=== PATIENT | female | born 1985 | race American Indian/Alaskan Native ===

== ENCOUNTER 2017-03-04 22:38 | Outpatient (CLI) | payer MEDICAID ==
[2017-03-04 22:57] VITALS: BP 130/83
== END 2017-03-04 23:41 | disposition home or self-care (01) ==
LOC: TRG 22:38
PROVIDERS: ATTEND Obstetrics & Gynecology
DX: Z34.93 Encounter for supervision of normal pregnancy, unspecified, third trimester (principal); Z3A.38 38 weeks gestation of pregnancy
CPT/HCPCS: 59025

== ENCOUNTER 2017-03-15 04:29 | Inpatient (IN) | payer MEDICAID ==
[2017-03-15] MEDS ORDERED: ePHEDrine SULFATE IV PRN ×2 (07:06→08:25)
[2017-03-15] MEDS ORDERED: MINERAL OIL PO PRN (07:06)
[2017-03-15] MEDS ORDERED: BRETHINE SUB-Q PRN (07:06)
[2017-03-15] MEDS ORDERED: XYLOCAINE 2% INFILTRATI ONE (07:06)
[2017-03-15] MEDS ORDERED: BRETHINE IVP PRN (07:06)
[2017-03-15] MEDS ORDERED: SUBLIMAZE IV PRN (07:06)
[2017-03-15 07:55] LABS: Basophils % (Auto) 0.2 % (0.0-1.8); Eosinophils % (Auto) 0.1 % (0.0-4.3); Hematocrit 32.5 % (30.3-42.9); Hemoglobin 10.8 gm/dl (10.1-14.3); Lymphocytes # (Auto) 1.6 K/mm3 (1.2-5.4); Lymphocytes % (Auto) 14.5 % (13.4-35.0); Mean Corpuscular HGB Conc 33 % (30-34); Mean Corpuscular Hemoglobin 27 pg (28-32); Mean Corpuscular Volume 82 fl (79-97); Monocytes % (Auto) 9.7 % (0.0-7.3); Platelet Count 258 K/mm3 (140-440); Red Blood Count 3.97 M/mm3 (3.65-5.03); Red Cell Distribution Width 18.4 % (13.2-15.2)
[2017-03-15] MEDS ORDERED: PITOCin/NS 20 UNIT/1000ML DRIP 20 UNITS/1,000 ML BAG IV SCH (08:00)
[2017-03-15] MEDS ORDERED: LACTATED RINGERS 1,000 ML IV SCH ×2 (08:00)
--- NOTE | 2017-03-15 08:13 | History and Physical Report ---
History of Present Illness Date of examination: 03/15/17 Date of admission: 03/15/17 07:00 Chief complaint: contractions History of present illness: 31 y/o now 39.5 weeks presents in active labor. GBS Neg. care at [facility] since 17.3 weeks. 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 Past History Past Medical History: other (Hemoglobin C trait) Past Surgical History: other (Hernia repair age 12) REHAB NURSING TECH History: herpes, trichomonas Family/Genetic History: other (TB, Hep B, asthma) Social history: no significant social history - Obstetrical History Expected Date of Delivery: 03/17/17 Actual Gestation: 39 Week(s) 5 Day(s) : 5 Para: 1 Hx # Term Pregnancies: 1 Spontaneous Abortions: 2 Induced : 1 Number of Living Children: 1 Medications and Allergies Allergies Allergy/AdvReac Type Severity Reaction Status Date / Time No Known Allergies Allergy Verified 02/17/14 10:52 Home Medications Medication Instructions Recorded Confirmed Last Taken Type No Known Home Medications [No 03/15/17 03/15/17 Unknown History Reported Home Medications] Active Meds: Active Medications Ephedrine Sulfate (Ephedrine Sulfate) 10 mg IV Q2M PRN PRN Reason: Hypotension Fentanyl (Sublimaze) 100 mcg IV Q2H PRN PRN Reason: Labor Pain Last Admin: 03/15/17 07:21 Dose: 100 mcg Lactated Ringer's (Lactated Ringers) 1,000 mls @ 125 mls/hr IV DIRECT KRIS Last Admin: 03/15/17 07:21 Dose: 125 mls/hr Lactated Ringer's (Lactated Ringers) 1,000 mls @ 125 mls/hr IV DIRECT KRIS Oxytocin/Sodium Chloride (Pitocin/Ns 20 Unit/1000ml Drip) 20 units in 1,000 mls @ 125 mls/hr IV DIRECT KRSI Mineral Oil (Mineral Oil) 30 ml PO QHS PRN PRN Reason: Constipation Terbutaline Sulfate (Brethine) 0.25 mg SUB-Q ONCE PRN PRN Reason: Hyperstimulation/Hypertonicity Terbutaline Sulfate (Brethine) 0.25 mg IVP ONCE PRN PRN Reason: Hyperstimulation/Hypertonicity Review of Systems All systems: negative - Vital Signs Vital signs: Vital Signs Temp Pulse Resp BP 98.2 F 126 H 20 127/74 03/15/17 04:43 03/15/17 04:43 03/15/17 04:43 03/15/17 04:43 Temp Pulse Resp BP Pulse Ox 98.1 F 128 H 16 128/74 98 03/15/17 07:46 03/15/17 08:08 03/15/17 07:46 03/15/17 08:08 03/15/17 08:08 - Physical Exam Breasts: Positive: deferred Cardiovascular: Regular rate Lungs: Positive: Clear to auscultation Abdomen: Positive: soft Genitourinary (Female): Positive: normal external genitalia Vulva: both: normal Vagina: Positive: normal moisture Uterus: Positive: enlarged Adnexa: both: normal Anus/Rectum: Positive: normal perianal skin Extremities: Positive: normal Deep Tendon Reflex Grade: Normal +2 - Obstetrical FHR: category 1 Cervical Dilatation: 8 Cervical Effacement Percentage: 80 station: -1 Uterine Contraction Pattern: Regular Uterine Contraction Intensity: Mild Results Result Diagrams: 03/15/17 07:20 Abnormal lab results 03/15/17 Range/Units 07:20 MCH 27 L (28-32) pg RDW 18.4 H (13.2-15.2) % [place] % (Auto) 9.7 H (0.0-7.3) % [place] # 1.0 H (0.0-0.8) K/mm3 Seg Neutrophils % 75.5 H (40.0-70.0) % Seg Neutrophils # 8.1 H (1.8-7.7) K/mm3 All other labs normal. Assessment and Plan O: Arom with Meconium A: Active labor P: Expect
[2017-03-15] MEDS ORDERED: fentaNYL-BUPIV 2 MCG/ML-0.125% 200 MCG/100 ML BAG EPIDURAL ONE (08:17)
[2017-03-15] MEDS ORDERED: NARCAN 2 MG/2 ML IV PRN (08:25)
--- NOTE | 2017-03-15 08:25 | Anesthesia Consultation ---
Anesthesia Consult and Med Hx Date of service: 03/15/17 - Airway Anesthetic Teeth Evaluation: Good ROM Head & Neck: Adequate Mental/Hyoid Distance: Adequate Mallampati Class: Class II Intubation Access Assessment: Probably Good - Pulmonary Exam CTA: Yes - Cardiac Exam Cardiac Exam: RRR - Pre-Operative Health Status ASA Pre-Surgery Classification: ASA2 Proposed Anesthetic Plan: Epidural - Pulmonary Hx Asthma: No COPD: No Hx Pneumonia: No - Cardiovascular System Hx Hypertension: No - Central Nervous System Hx Seizures: No Hx Psychiatric Problems: Yes (anxiety) - Endocrine Hx Renal Disease: No Hx End Stage Renal Disease: No Hx Liver Disease: No Hx Hypothyroidism: No Hx Hyperthyroidism: No - Hematic Hx Anemia: Yes Hx 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
[2017-03-15] MEDS ORDERED: fentaNYL-BUPIV 2 MCG/ML-0.125% 200 MCG/100 ML BAG EPIDURAL SCH (09:00)
[2017-03-15] MEDS ORDERED: DULCOLAX PR PRN (09:30)
[2017-03-15] MEDS ORDERED: LANSINOH TP PRN (09:30)
[2017-03-15] MEDS ORDERED: TUCKS PAD TP PRN (09:30)
[2017-03-15] MEDS ORDERED: BENADRYL PO PRN (09:30)
[2017-03-15] MEDS ORDERED: TYLENOL PO PRN (09:30)
--- NOTE | 2017-03-15 09:38 | Procedure Note ---
OB Delivery Note - Delivery Date of Delivery: 03/15/17 Surgeon: FRANCES JAY Estimated blood loss: 200cc - Vaginal Delivery presentation: vertex Delivery position: OA Intrapartum events: meconium Delivery induction: none Delivery augmentation: rupture of membranes Delivery monitor: external FHT, external uterine Route of delivery: Delivery placenta: spontaneous Delivery cord: 3 umbilical vessels Episiotomy: none Delivery laceration: none Anesthesia: epidural Delivery comments: of a viable male 6#6oz at 0909 on 03/15/2017 over intact perinuem. Cord clamped and cut and baby passed to NICU nurse due to Meconium. Apgars 7/9. Placenta delivered S3VCI. Membranes trailing and removed manually. FF @U-2, lochia small. Mother and baby doing well. - A at 1 minute: 8 at 5 minutes: 9 Infant Gender: Male (6# 6oz)
[2017-03-15] MEDS ORDERED: SODIUM CHLORIDE FLUSH SYRINGE 10 ML IV NR (10:00)
[2017-03-15] MEDS: MOTRIN PO SCH (17:19)
[2017-03-15] MEDS: NORCO 5/325 PO PRN (19:51)
[2017-03-15 20:26] LABS: Hematocrit 26.5 % (30.3-42.9)
[2017-03-16] MEDS: MOTRIN PO SCH ×5 (00:07→23:31)
[2017-03-16] MEDS: NORCO 5/325 PO PRN ×4 (04:03→23:31)
--- NOTE | 2017-03-16 09:36 | Progress Note ---
Assessment and Plan A: PPD #1, Stable P: Continue routine care. Plan discharge for tomorrow. Subjective - Subjective Date of service: 03/16/17 Principal diagnosis: PPD #1 Patient reports: appetite normal, voiding normally, pain well controlled, ambulating normally [place]: doing well Objective - Vital Signs Latest vital signs: Vital Signs Temp Pulse Resp BP BP 03/16/17 05:03 18 03/16/17 04:03 18 03/16/17 04:00 18 03/16/17 01:07 18 03/16/17 00:07 18 03/16/17 00:00 98.7 F 99 H 20 120/72 03/15/17 20:51 18 03/15/17 19:51 18 03/15/17 17:40 98.6 F 90 18 128/79 03/15/17 09:47 111 H 119/73 Intake and Output 03/15/17 03/16/17 03/16/17 23:59 07:59 15:59 Intake Total 600 120 Balance 600 120 Intake: Oral 600 Intake, Free Water 120 Other: Total, Intake Amount 240 # Voids Void 1 1 - Exam Breasts: Present: deferred Cardiovascular: Present: Regular rate Lungs: Present: Clear to auscultation Abdomen: Present: normal appearance, soft Vulva: both: normal Uterus: Present: normal, firm, fundal height below umbilicus Extremities: Present: normal Deep Tendon Reflex Grade: Normal +2 - Labs Labs: Abnormal lab results 03/15/17 Range/Units 20:20 Hgb 9.0 L (10.1-14.3) gm/dl Hct 26.5 L D (30.3-42.9) %
[2017-03-17] MEDS: NORCO 5/325 PO PRN ×3 (05:26→20:02)
[2017-03-17] MEDS: MOTRIN PO SCH ×3 (05:26→20:02)
--- NOTE | 2017-03-17 08:48 | Progress Note ---
Assessment and Plan - Patient Problems (1) (normal spontaneous vaginal delivery) Onset Date: 03/17/17 Current Visit: Yes Status: Resolved Plan to address problem: A: S/P - PPD #2 Doing well Asymptomatic anemia - stable P: May go home today (2) Acute blood loss anemia Onset Date: 03/17/17 Current Visit: Yes Status: Resolved Subjective - Subjective Date of service: 03/17/17 Principal diagnosis: PPD #2 Interval history: Pt feeling well, complaints of abdominal cramping. Bleeding improved. Patient reports: appetite normal, voiding normally, pain well controlled, ambulating normally : doing well, nursing well Objective - Vital Signs Latest vital signs: Vital Signs Temp Pulse Resp BP BP Pulse Ox 03/17/17 00:41 97.6 F 106 H 20 118/75 100 03/16/17 18:32 20 03/16/17 18:30 20 03/16/17 16:00 98.1 F 102 H 16 126/88 98 03/16/17 12:00 98.2 F 100 H 16 120/70 97 03/16/17 11:45 20 Intake and Output 03/16/17 03/17/17 03/17/17 22:59 06:59 14:59 Intake Total 240 240 Balance 240 240 Intake: Oral 240 Intake, Free Water 240 Other: Total, Intake Amount 240 # Voids Void 1 1 Last Vital Signs Temp 98.1 F 03/17/17 07:43 Pulse 89 03/17/17 07:43 Resp 20 03/17/17 07:43 BP 105/64 03/17/17 07:43 Pulse Ox 98 03/17/17 07:43 - Exam Breasts: Present: deferred Cardiovascular: Present: Regular rate Lungs: Present: Clear to auscultation Abdomen: Present: normal appearance, soft Uterus: Present: normal, firm, fundal height below umbilicus Extremities: Present: normal - Labs Labs: Laboratory Tests 03/15/17 03/15/17 03/15/17 07:20 07:20 07:20 WBC 10.8 RBC 3.97 Hgb 10.8 Hct 32.5 MCV 82 MCH 27 L MCHC 33 RDW 18.4 H Plt Count 258 Lymph % (Auto) 14.5 [place] % (Auto) 9.7 H Eos % (Auto) 0.1 Baso % (Auto) 0.2 Lymph # 1.6 [place] # 1.0 H Eos # 0.0 Baso # 0.0 Seg Neutrophils % 75.5 H Seg Neutrophils # 8.1 H RPR Nonreactive Blood Type O POSITIVE Antibody Screen Negative 03/15/17 20:20 WBC RBC Hgb 9.0 L Hct 26.5 L D MCV MCH MCHC RDW Plt Count Lymph % (Auto) [place] % (Auto) Eos % (Auto) Baso % (Auto) Lymph # [place] # Eos # Baso # Seg Neutrophils % Seg Neutrophils # RPR Blood Type Antibody Screen
--- NOTE | 2017-03-17 09:05 | Discharge Summary ---
Providers - Providers Date of Admission: 03/15/17 07:00 Date of discharge: 03/17/17 Attending physician: LIZ RANDHAWA MD Primary care physician: LIZ RANDHAWA MD Hospitalization Reason for admission: active labor, IUP at term Delivery: Episiotomy: none Laceration: none Other procedures: none complications: none Discharge diagnosis: IUP at term delivered [place] baby: male Hospital course: Unremarkable. Condition at discharge: Good Disposition: MA-01 TO HOME OR SELFCARE - Discharge Diagnoses (1) (normal spontaneous vaginal delivery) Status: Resolved (2) Acute blood loss anemia Status: Resolved Plan - Discharge Medications Prescriptions: Ferrous Sulfate [Feosol 325 MG tab] 325 mg PO BID #60 tablet HYDROcodone/APAP 5-325 [[place] 5-325 mg TAB] 1 each PO Q6H PRN #20 tablet PRN Reason: Pain, Moderate (4-6) Ibuprofen [Motrin 600 MG tab] 600 mg PO Q6H #30 tablet Vit Calc,Iron,Folic [ Vitamins] 1 each PO DAILY #30 tablet - Provider Discharge Summary Activity: routine, no sex for 6 weeks, no heavy lifting 4 weeks, no strenuous exercise Diet: routine Instructions: routine Additional instructions: [] Smoking cessation referral if applicable(refer to patient education folder for contact #) [] Refer to [facility] Booklet Call your doctor immediately for: * Fever > 100.5 * Heavy vaginal bleeding ( >1 pad per hour) * Severe persistent headache * Shortness of breath * Reddened, hot, painful area to leg or breast * Drainage or odor from incision. * Keep incision clean and dry at all times and follow doctor's instructions regarding bathing/showering - Follow up plan Follow up: LIZ RANDHAWA MD [Primary Care Provider] - 6 Weeks
[2017-03-17 17:33] VITALS: BP 128/87
== END 2017-03-17 23:10 | disposition home or self-care (01) | DRG 774 ==
LOC: TRG 04:29 → LD 07:00 → OB 10:29
PROVIDERS: ADMIT Obstetrics & Gynecology; ATTEND Obstetrics & Gynecology
PROC: 10E0XZZ Delivery of Products of Conception, External Approach (ICD-10-PCS; principal; 2017-03-15)
PROC: 10907ZC Drainage of Amniotic Fluid, Therapeutic from Products of Conception, Via Natural or Artificial Opening (ICD-10-PCS; 2017-03-15)
PROC: 3E0R3BZ Introduction of Anesthetic Agent into Spinal Canal, Percutaneous Approach (ICD-10-PCS; 2017-03-15)
PROC: 00HU33Z Insertion of Infusion Device into Spinal Canal, Percutaneous Approach (ICD-10-PCS; 2017-03-15)
DX: O77.0 Labor and delivery complicated by meconium in amniotic fluid (principal); O98.32 Other infections with a predominantly sexual mode of transmission complicating childbirth; Z3A.39 39 weeks gestation of pregnancy; Z37.0 Single live birth; D62 Acute posthemorrhagic anemia; O99.03 Anemia complicating the puerperium; O99.344 Other mental disorders complicating childbirth; F41.9 Anxiety disorder, unspecified; A60.00 Herpesviral infection of urogenital system, unspecified
CPT/HCPCS: 36415; 85014; 85018; 85025; 86592; 86850; 86900; 86901; 99211; G0463; J2590; J3010; J7120

== ENCOUNTER 2018-09-04 14:38 | Emergency (ER) | payer MEDICAID ==
--- NOTE | 2018-09-04 15:03 | Emergency Department Report ---
Blank Doc - Documentation Documentation: Patient reports lower abdominal pain started 2 to 3 week ago getting worst. No fever, chills, diarrhea. reports vaginal discharge and spotting. LMP 03/2018. [facility]. This was 11 days ago and she called today for results and was told results not back and was told by nurse to come to ED. No vaginal exam at [facility],
[2018-09-04 15:27] LABS: Bilirubin,Urine NEG (Negative); Blood,Urine NEG (Negative); Color,Urine Yellow (Yellow); Mucus,Urine FEW /HPF; Protein,Urine <15 mg/dL mg/dL (Negative); Urobilinogen,Urine < 2.0 mg/dL (<2.0)
[2018-09-04 15:28] LABS: HCG Qualitative,Urine Positive (Negative)
[2018-09-04 16:05] LABS: Hematocrit 29.4 % (30.3-42.9); Hemoglobin 9.9 gm/dl (10.1-14.3); Mean Corpuscular HGB Conc 34 % (30-34); Mean Corpuscular Volume 77 fl (79-97); Platelet Count 265 K/mm3 (140-440); Red Blood Count 3.81 M/mm3 (3.65-5.03); Red Cell Distribution Width 18.2 % (13.2-15.2)
[2018-09-04 16:26] LABS: BUN/Creatinine Ratio 12; Blood Urea Nitrogen 6 mg/dL (7-17); Calcium 9.4 mg/dL (8.4-10.2); Hemolysis Index 2
--- NOTE | 2018-09-04 17:17 | Emergency Department Report ---
HPI - General Chief Complaint: Abdominal Pain Time Seen by Provider: 09/04/18 14:57 - HPI HPI: Patient is a 33-year-old female comes to the ER complaining of lower abdominal pain bilateral for several days. She denies nausea vomiting or diarrhea. She does report vaginal discharge but is not concerned for STI. She has one male sexual partner. 3 para 2 abortions 1. Her last menstrual cycle for 06/10/2018. She saw her [facility] last week who did not tell her she was per the patient. She states that she had a STD workup. She called them today and the results are not back to the center to the ER. 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 HEMOGLOBIN C TRAIT - Surgical History Past Surgical History?: Yes Additional Surgical History: hernia repair at age 12 - Social History Smoking Status: Never Smoker Substance Use Type: None - Medications Home Medications: Home Medications Medication Instructions Recorded Confirmed Last Taken Type Vit-Fe Fumar-FA [ 1 tab PO QDAY #30 tablet 09/04/18 Unknown Rx Vitamin] ED Review of Systems ROS: Stated complaint: LOW ABDOMINAL PAIN Other details as noted in HPI Comment: All other systems reviewed and negative Genitourinary: discharge. denies: urgency, dysuria, frequency, hematuria Physical Exam - Physical Exam Vital Signs: Vital Signs 09/04/18 14:48 Temperature 98.1 F Pulse Rate 95 H Respiratory 16 Rate Blood Pressure 115/80 O2 Sat by Pulse 100 Oximetry Physical Exam: WDWN patient in NAD VS per RN flow sheet Alert and oriented to person, place and time. S1-S2. No S3 or S4. No systolic or diastolic murmur. No JVD. No pitting angel ma. Lungs clear to auscultation bilaterally anteriorly and posteriorly. Abdomen soft nontender bowel sounds X4 abd soft non tender no cva tenderness Moves all extremities well. Mood and affect appropriate. ED Course Vital Signs 09/04/18 14:48 Temperature 98.1 F Pulse Rate 95 H Respiratory 16 Rate Blood Pressure 115/80 O2 Sat by Pulse 100 Oximetry ED Medical Decision Making - Lab Data Result diagrams: 09/04/18 15:49 09/04/18 15:49 - Radiology Data Radiology results: report reviewed, image reviewed - Medical Decision Making Labs 09/04/18 09/04/18 09/04/18 15:05 15:49 15:49 WBC 5.3 RBC 3.81 Hgb 9.9 L Hct 29.4 L MCV 77 L MCH 26 L MCHC 34 RDW 18.2 H Plt Count 265 Sodium 136 L Potassium 3.8 Chloride 101.2 Carbon Dioxide 22 Anion Gap 17 BUN 6 L Creatinine 0.5 L Estimated GFR > 60 BUN/Creatinine Ratio 12 Glucose 74 Calcium 9.4 HCG, Quant Urine Color Yellow Urine Turbidity Clear Urine pH 5.0 Ur Specific [place] 1.027 Urine Protein <15 mg/dl Urine Glucose (UA) Neg Urine Ketones Neg Urine Blood Neg Urine Nitrite Neg Urine Bilirubin Neg Urine Urobilinogen < 2.0 Ur Leukocyte Esterase Tr Urine WBC (Auto) 9.0 H Urine RBC (Auto) 3.0 U Epithel Cells (Auto) 5.0 Urine Mucus Few Urine HCG, Qual Positive A Blood Type Ord Rhogam Gestat Weeks 09/04/18 09/04/18 15:49 15:49 WBC RBC Hgb Hct MCV MCH MCHC RDW Plt Count Sodium Potassium Chloride Carbon Dioxide Anion Gap BUN Creatinine Estimated GFR BUN/Creatinine Ratio Glucose Calcium HCG, Quant [id number] H Urine Color Urine Turbidity Urine pH Ur Specific [place] Urine Protein Urine Glucose (UA) Urine Ketones Urine Blood Urine Nitrite Urine Bilirubin Urine Urobilinogen Ur Leukocyte Esterase Urine WBC (Auto) Urine RBC (Auto) U Epithel Cells (Auto) Urine Mucus Urine HCG, Qual Blood Type O POSITIVE Ord Rhogam Gestat Weeks Rh pos Vital Signs 09/04/18 14:48 Temperature 98.1 F Pulse Rate 95 H Respiratory 16 Rate Blood Pressure 115/80 O2 Sat by Pulse 100 Oximetry PREG POS no vaginal bleeding! RH POS labs noted HCG [id number] [id number] and tr leuk in urine urine culture sent given 1 GM rocephin IM for UTI call her if cultures is greater than 10K colony count pt denies dysuria or frequency she is not concerned for STI Further, she had a full work up last week by her obgyn at [facility]- she will call them back in the AM for the results of her tests. ULTRASOUND pending Plan provided US shows no ectopic pt to dc home to follow up [facility] in the AM for her lab results and to schedule her visit and follow up hcg on Friday AM. - Differential Diagnosis RO PREG/ RO ECTOPIC/ RO UTI Critical care attestation.: If time is entered above; I have spent that time in minutes in the direct care of this critically ill patient, excluding procedure time. ED Disposition Clinical Impression: , Chronic anemia, UTI (urinary tract infection) Disposition: DC TO HOME OR SELFCARE Is pt being admited?: No Does the pt Need Aspirin: No Condition: Stable Instructions: (ED) Additional Instructions: DIET TOLERATED FOLLOW UP OBGYN IN AM FOR CARE AND TO GET YOUR HCG RECHECKED ON FRIDAY AM (TODAYS VALUE [id number]) BLOOD TYPE RH POS ACTIVITY TOLERATED TYLENOL FOR PAIN OR FEVER RETURN TO THE ER FOR WORSENING SYMPTOMS NOT RELIEVED BY YOUR MEDICATIONS. SAFE SEX AVOID ALCOHOL, DRUGS, MARIJUANA AND TOBACCO DAILY MULTI VITAMIN Prescriptions: Vit-Fe Fumar-FA [ Vitamin] 1 tab PO QDAY #30 tablet Referrals: BATSHEVA SAMANIEGO MD [Staff Physician] - 3-5 Days Time of Disposition: 17:48
[2018-09-04] MEDS ORDERED: ROCEPHIN IM ONE (18:52)
[2018-09-04] MEDS ORDERED: XYLOCAINE 1% MPF 5 mL INFILTRATI ONE (18:52)
--- NOTE | 2018-09-04 19:39 | Ultrasound Report ---
Transabdominal and transvaginal OB pelvic ultrasound INDICATION / CLINICAL INFORMATION: ABD PAIN. COMPARISON: None available. FINDINGS: Transabdominal: There is an intrauterine gestational sac with a pole. The estimated gestational age is 7 weeks 1 day by crown-rump length. The heart rate is 144 bpm. A yolk sac is present. I see no evidence of implantation hemorrhage. The ovaries are suboptimally imaged. Transvaginal: There is an intrauterine gestational sac. The estimated gestational age is 7 weeks 5 da ys by crown-rump length. The heart rate is 145 bpm. There is a minimal area of implantation hem orrhage anteriorly. The right ovary measures 2.8 x 1.5 x 1.4 cm and the left ovary 2.6 x 2.5 x 2.0 cm . There is a 1.5 cm corpus luteal cyst in the left ovary. There is normal blood flow to both ovaries on Doppler exam. No free fluid is seen. IMPRESSION: 1. Single viable 7 week 5 day intrauterine with a minimal area of implantation hemorrhage 2. Small corpus luteal cyst in the left ovary. Signer Name: Jitendra Pretty MD Signed: 09/04/2018 7:35 PM Workstation Name: [id number]
[2018-09-04 20:24] VITALS: BP 114/81
== END 2018-09-04 20:24 | disposition home or self-care (01) ==
LOC: ED 14:38
DX: O23.41 Unspecified infection of urinary tract in pregnancy, first trimester (principal); O99.011 Anemia complicating pregnancy, first trimester; D63.8 Anemia in other chronic diseases classified elsewhere; Z98.890 Other specified postprocedural states; Z3A.01 Less than 8 weeks gestation of pregnancy
CPT/HCPCS: 36415; 76801; 76817; 80048; 81001; 81025; 84702; 85027; 86900; 86901; 87086; 96372; 99284; J0696

== ENCOUNTER 2018-12-03 18:44 | Emergency (ER) | payer MEDICAID ==
[2018-12-03 18:55] VITALS: BP 119/76
--- NOTE | 2018-12-03 19:01 | Event Note ---
ED Screening Note ED Screening Note: This initial assessment/diagnostic orders/clinical plan/treatment(s) is/are subject to change based on patients health status, clinical progression and re- assessment by fellow clinical providers in the ED. Further treatment and workup at subsequent clinical providers discretion. Patient/guardian urged not to elope from the ED as their condition may be serious if not clinically assessed and managed. Initial orders include: 33 yo BF states that she is pain due to her hemorrhoids. She is also 5 months . She further states that her pain is worse with movement and makes defecating painful in addition to constipation she is experiencing.
[2018-12-03] MEDS ORDERED: LIDOCAINE 2% JELLY 30 ML TP ONE (20:21)
[2018-12-03] MEDS ORDERED: ACETAMINOPHEN 500 MG TAB PO ONE (20:21)
--- NOTE | 2018-12-03 21:48 | Emergency Department Report ---
ED General Adult HPI - General Chief complaint: Medical Clearance Stated complaint: 21WKS HEMORRHOIDS Source: patient Mode of arrival: Ambulatory Limitations: No Limitations - History of Present Illness Initial comments: Patient is a A0 33-year-old -[place] female who is approximately 21 weeks gestation and who presents to the ED with complaint of acute onset persistent rectal pain with external hemorrhoids for the last 1 week. Patient also complains of intermittent constipation for the last 1 week but has been taking stool softeners which has since helped. Patient denies fever, chills, nausea, vomiting, abdominal pain, dizziness, dysuria, urinary frequency and urgency or vaginal discharge and vaginal bleeding. MD Complaint: Rectal pain; hemorrhoids pain -: Sudden, week(s) (1) Radiation: non-radiation Severity scale (0 -10): 8 Quality: burning, aching, sharp Consistency: constant Improves with: none Worsens with: none Associated Symptoms: denies other symptoms. denies: confusion, chest pain, diaphoresis, fever/chills, headaches, malaise, nausea/vomiting, seizure Treatments Prior to Arrival: none - Related Data Previous Rx's Medication Instructions Recorded Last Taken Type Vit-Fe Fumar-FA [ 1 tab PO QDAY #30 tablet 09/04/18 Unknown Rx Vitamin] Dibucaine [Hemorrhoidal-Analgesic] 28 gm TP Q6H PRN #28 oint...g. 12/03/18 Unknown Rx Docusate Sodium [Colace] 100 mg PO BID PRN #60 capsule 12/03/18 Unknown Rx Hydrocortisone [Anusol-Hc 2.5% TOP 30 gm RC Q8H PRN #30 cream..g. 12/03/18 Unknown Rx CREAM] Allergies Allergy/AdvReac Type Severity Reaction Status Date / Time No Known Allergies Allergy Verified 12/03/18 18:53 ED Review of Systems ROS: Stated complaint: 21WKS HEMORRHOIDS Other details as noted in HPI Constitutional: denies: chills, fever Eyes: denies: eye pain, eye discharge, vision change ENT: denies: ear pain, throat pain Respiratory: denies: cough, shortness of breath, wheezing Cardiovascular: denies: chest pain, palpitations Endocrine: no symptoms reported Gastrointestinal: constipation, other (rectal pain due toe xternal hemorrhoids). denies: abdominal pain, nausea, vomiting, diarrhea Genitourinary: denies: urgency, dysuria, discharge Musculoskeletal: denies: back pain, joint swelling, arthralgia Skin: denies: rash, lesions Neurological: denies: headache, weakness, paresthesias Psychiatric: denies: anxiety, depression Hematological/Lymphatic: denies: easy bleeding, easy bruising ED Past Medical Hx - Past Medical History Previous Medical History?: Yes Hx Hypertension: No Hx CVA: No Hx Congestive Heart Failure: No Hx Diabetes: No Hx Deep Vein Thrombosis: No Hx Pulmonary Embolism: No Hx GERD: No Hx Liver Disease: No Hx Renal Disease: No 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 HEMOGLOBIN C TRAIT - Surgical History Additional Surgical History: hernia repair at age 12 - Social History Smoking Status: Never Smoker - Medications Home Medications: Home Medications Medication Instructions Recorded Confirmed Last Taken Type Vit-Fe Fumar-FA [ 1 tab PO QDAY #30 tablet 09/04/18 Unknown Rx Vitamin] Dibucaine [Hemorrhoidal-Analgesic] 28 gm TP Q6H PRN #28 oint...g. 12/03/18 Unknown Rx Docusate Sodium [Colace] 100 mg PO BID PRN #60 capsule 12/03/18 Unknown Rx Hydrocortisone [Anusol-Hc 2.5% TOP 30 gm RC Q8H PRN #30 cream..g. 12/03/18 Unknown Rx CREAM] ED Physical Exam - General Limitations: No Limitations General appearance: alert, in no apparent distress - Head Head exam: Present: atraumatic, normocephalic, normal inspection - Eye Eye exam: Present: normal appearance, PERRL, EOMI Pupils: Present: normal accommodation - ENT ENT exam: Present: normal exam, normal orophraynx, mucous membranes moist, TM's normal bilaterally, normal external ear exam - Neck Neck exam: Present: normal inspection, full ROM - Respiratory Respiratory exam: Present: normal lung sounds bilaterally. Absent: respiratory distress, wheezes, rhonchi, chest wall tenderness, decreased breath sounds, prolonged expiratory - Cardiovascular Cardiovascular Exam: Present: regular rate, normal rhythm. Absent: systolic murmur, diastolic murmur, rubs, gallop - GI/Abdominal GI/Abdominal exam: Present: soft, normal bowel sounds. 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 Absent: rash ED Course Vital Signs 12/03/18 18:53 Pulse Rate 104 H Respiratory 20 Rate Blood Pressure 119/76 [Right] O2 Sat by Pulse 99 Oximetry - Reevaluation(s) Reevaluation #1: 12/03/18 21:52 This is a 33-year-old female who is approximately 21 weeks gestation and who presented to the ED with painful external hemorrhoids for over 1 week. In the ED, patient is alert and oriented 3 and is not in distress. Physical exam shows external tender non-thrombosed hemorrhoids. Patient was treated in the ED with lidocaine 2% topical gel and discharged home on multiple pain medications including dibucaine and Anusol. Patient was advised to follow-up with [facility] physician in 5-7 days for reevaluation or return to the ED immediately if symptoms get worse. ED Medical Decision Making - Medical Decision Making This is a 33-year-old female who is approximately 21 weeks gestation and who presented to the ED with painful external hemorrhoids for over 1 week. In the ED, patient is alert and oriented 3 and is not in distress. Physical exam shows external tender non-thrombosed hemorrhoids. Patient was treated in the ED with lidocaine 2% topical gel and discharged home on multiple pain medications including dibucaine and Anusol. Patient was advised to follow-up with [facility] physician in 5-7 days for reevaluation or return to the ED immediately if sympt oms get worse. - Differential Diagnosis External hemorrhoids; Rectal pain; anal fissures; anal tears Critical care attestation.: If time is entered above; I have spent that time in minutes in the direct care of this critically ill patient, excluding procedure time. ED Disposition Clinical Impression: External hemorrhoids, Rectal or anal pain Constipation Qualifiers: Constipation type: unspecified constipation type Qualified Code(s): K59.00 - Constipation, unspecified Disposition: TO HOME OR SELFCARE Is pt being admited?: No Does the pt Need Aspirin: No Condition: Stable Instructions: Hemorrhoids (ED) Additional Instructions: Apply the ointment in the affected area 3-4 times a day as needed. Take medications for pain, mainly Tylenol, drink plenty of fluids and follow-up with your primary care physician or [facility] physician in 7-10 days for reevaluation. Return to the ED immediately if symptoms get worse. Prescriptions: Hydrocortisone [Anusol-Hc 2.5% TOP CREAM] 30 gm RC Q8H PRN #30 cream..g. PRN Reason: Pain , Severe (7-10) Docusate Sodium [Colace] 100 mg PO BID PRN #60 capsule PRN Reason: Constipation Dibucaine [Hemorrhoidal-Analgesic] 28 gm TP Q6H PRN #28 oint...g. PRN Reason: Pain , Severe (7-10) Referrals: PRIMARY CARE,MD [Primary Care Provider] - 3-5 Days Forms: Work/School Release Form(ED) Time of Disposition: 21:45 Print Language: FRENCH
== END 2018-12-03 22:02 | disposition home or self-care (01) ==
LOC: ED 18:44
DX: O26.892 Other specified pregnancy related conditions, second trimester (principal); K64.4 Residual hemorrhoidal skin tags; K59.00 Constipation, unspecified; Z79.899 Other long term (current) drug therapy; Z3A.21 21 weeks gestation of pregnancy
CPT/HCPCS: 99282

== ENCOUNTER 2019-02-20 12:37 | Outpatient (CLI) | payer MEDICAID ==
[2019-02-20] MEDS ORDERED: LACTATED RINGERS 500 ML IV ONE (13:00)
[2019-02-20 13:10] VITALS: BP 109/72
[2019-02-20] MEDS ORDERED: ACETAMINOPHEN 325 MG TAB PO PRN (13:33)
--- NOTE | 2019-02-21 11:36 | Ultrasound Report ---
US OB limited INDICATION / CLINICAL INFORMATION: Fall. COMPARISON: 09/04/2018 FINDINGS: Single viable intrauterine gestation in the cephalic presentation. heart rate 166 bpm The placenta is grade 1 and fundal, extending posteriorly. No evidence of abruption. Signer Name: Avery Nichols MD Signed: 02/21/2019 11:32 AM Workstation Name: [id number]
== END 2019-02-20 17:04 | disposition home or self-care (01) ==
LOC: TRG 12:37
PROVIDERS: ATTEND Obstetrics & Gynecology
DX: O47.03 False labor before 37 completed weeks of gestation, third trimester (principal); Z3A.32 32 weeks gestation of pregnancy
CPT/HCPCS: 76815

== ENCOUNTER 2019-04-01 04:58 | Inpatient (IN) | payer MEDICAID ==
[2019-04-01] MEDS ORDERED: LACTATED RINGERS 1,000 ML IV ONE (05:11)
[2019-04-01] MEDS ORDERED: BICITRA ORAL LIQD 30ML PO ONE ×2 (05:11→09:25)
[2019-04-01] MEDS ORDERED: ONDANSETRON 4 MG/2 ML INJ IV PRN ×2 (05:48→11:23)
[2019-04-01] MEDS ORDERED: HYDROmorphone 1 MG/1 ML INJ IV PRN (05:48)
--- NOTE | 2019-04-01 05:57 | Anesthesia Consultation ---
Anesthesia Consult and Med Hx Date of service: 04/01/19 - Airway Anesthetic Teeth Evaluation: Good ROM Head & Neck: Adequate Mental/Hyoid Distance: Adequate Mallampati Class: Class II Intubation Access Assessment: Probably Good - Pulmonary Exam CTA: Yes - Cardiac Exam Cardiac Exam: RRR - Pre-Operative Health Status ASA Pre-Surgery Classification: ASA2 Proposed Anesthetic Plan: Spinal - Pulmonary Hx Smoking: No Hx Asthma: No Hx Respiratory Symptoms: No SOB: No COPD: No Home Oxygen Therapy: No Hx Pneumonia: No Hx Sleep Apnea: No - Cardiovascular System Hx Hypertension: No Hx Coronary Artery Disease: No Hx Heart Attack/AMI: No Hx Angina: No Hx Percutaneous Transluminal Coronary Angioplasty (PTCA): No Hx Cardia Arrhythmia: No Hx Pacemaker: No Hx Internal Defibrillator: No Hx Valvular Heart Disease: No Hx Heart Murmur: No Hx Peripheral Vascular Disease: No - Central Nervous System Hx Neuromuscular Disorder: No Hx Seizures: No CVA: No Hx Back Pain: No Hx Psychiatric Problems: No - Gastrointestinal Hx Ulcer: No Hx Gastroesophageal Reflux Disease: Yes - Endocrine Hx Renal Disease: No Hx End Stage Renal Disease: No Hx Cirrhosis: No Hx Liver Disease: No Hx Insulin Dependent Diabetes: No Hx Non-Insulin Dependent Diabetes: No Hx Thyroid Disease: No Hx Hypothyroidism: No Hx Hyperthyroidism: No - Hematic Hx Anemia: Yes (sickle cell anemia trait) Hx Sickle Cell Disease: Yes (sickle cell trait) - Other Systems Hx Alcohol Use: No Hx Substance Use: No Hx Cancer: No Hx Obesity: No
--- NOTE | 2019-04-01 05:57 | Anesthesia Day of Surgery ---
Anesthesia Day of Surgery - Day of Surgery Patient Examined: Yes Patient H&P Reviewed: Yes Patient is NPO: Yes Beta Blockers: No Cardiac Clearance: No Pulmonary Clearance: No Clive's Test: N/A
[2019-04-01] MEDS ORDERED: METOCLOPRAMIDE 10 MG/2 ML INJ IV NR (06:00)
[2019-04-01 06:02] LABS: Basophils % (Auto) 0.3 % (0.0-1.8); Eosinophils % (Auto) 0.4 % (0.0-4.3); Hematocrit 28.6 % (30.3-42.9); Hemoglobin 9.6 gm/dl (10.1-14.3); Lymphocytes # (Auto) 1.9 K/mm3 (1.2-5.4); Lymphocytes % (Auto) 28.5 % (13.4-35.0); Mean Corpuscular HGB Conc 34 % (30-34); Mean Corpuscular Volume 81 fl (79-97); Monocytes # (Auto) 0.7 K/mm3 (0.0-0.8); Monocytes % (Auto) 10.2 % (0.0-7.3); Platelet Count 209 K/mm3 (140-440); Red Blood Count 3.52 M/mm3 (3.65-5.03); Red Cell Distribution Width 19.2 % (13.2-15.2)
[2019-04-01] MEDS: LACTATED RINGERS 1,000 ML IV SCH ×2 (06:49→14:49)
[2019-04-01] MEDS ORDERED: ceFAZolin/STERILE WATER 2 GM/20 ML SYRINGE IV NR (07:00)
[2019-04-01] MEDS ORDERED: FAMOTIDINE 20 MG/2 ML INJ IV ONE (07:00)
--- NOTE | 2019-04-01 08:39 | History and Physical Report ---
History of Present Illness Date of examination: 04/01/19 Date of admission: 04/01/19 04:58 History of present illness: PT is a 33 yo at 37.6 weeks today who is here for Primary LTCS per APA recommendation. has been complicated by multiple suspected anomalies. 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 - ? rocker bottom feet. PT also had mycoplasma and trich during the preg that was tx'd. GBS neg. Past History Past Medical History: other (HSV, anemia) Past Surgical History: other (inguinal hernia repair) Social history: no significant social history - Obstetrical History : 7 Hx # Term Pregnancies: 2 Spontaneous Abortions: 4 Number of Living Children: 2 Medications and Allergies Allergies Allergy/AdvReac Type Severity Reaction Status Date / Time No Known Allergies Allergy Verified 02/20/19 12:54 Home Medications Medication Instructions Recorded Confirmed Last Taken Type Vit-Fe Fumar-FA [ 1 tab PO QDAY #30 tablet 09/04/18 Unknown Rx Vitamin] Dibucaine [Hemorrhoidal-Analgesic] 28 gm TP Q6H PRN #28 oint...g. 12/03/18 Unknown Rx Docusate Sodium [Colace] 100 mg PO BID PRN #60 capsule 12/03/18 Unknown Rx Hydrocortisone [Anusol-Hc 2.5% TOP 30 gm RC Q8H PRN #30 cream..g. 12/03/18 Unknown Rx CREAM] Active Meds: Active Medications Cefazolin Sodium (Ancef/Sterile Water 2 Gm/20 Ml) 2 gm IV PREOP NR Stop: 04/01/19 10:00 Hydromorphone HCl (Dilaudid) 0.5 mg IV Q5M PRN PRN Reason: BREAK Stop: 04/01/19 13:58 Lactated Ringer's (Lactated Ringers) 1,000 mls @ 125 mls/hr IV DIRECT KRIS Last Admin: 04/01/19 06:49 Dose: 125 mls/hr Documented by: Metoclopramide HCl (Reglan) 10 mg IV PREOP NR Stop: 04/02/19 00:01 Ondansetron HCl (Zofran) 4 mg IV Q8H PRN PRN Reason: Nausea And Vomiting Sodium Chloride (Sodium Chloride Flush Syringe 10 Ml) 10 ml IV PRN NR Stop: 04/02/19 05:59 Review of Systems All systems: negative (except HPI) - Vital Signs Vital signs: Vital Signs Temp Resp 98.3 F 16 04/01/19 05:16 04/01/19 05:16 Temp Pulse Resp BP Pulse Ox 98.3 F 118 H 16 117/77 04/01/19 05:16 04/01/19 08:25 04/01/19 05:16 04/01/19 08:25 - Physical Exam Abdomen: Positive: soft. Negative: tenderness - Obstetrical FHR: category 1 Results Result Diagrams: 04/01/19 05:30 Abnormal lab results 04/01/19 Range/Units 05:30 RBC 3.52 L (3.65-5.03) M/mm3 Hgb 9.6 L (10.1-14.3) gm/dl Hct 28.6 L (30.3-42.9) % MCH 27 L (28-32) pg RDW 19.2 H (13.2-15.2) % [place] % (Auto) 10.2 H (0.0-7.3) % All other labs normal. Assessment and Plan - Patient Problems (1) anomaly necessitating delivery Current Visit: Yes Status: Acute Plan to address problem: PT has been fully consented for LTCS. Risks, benefits and alternatives d/w pt. All questions answered. PT agrees to proceed with surgery. Bryon is aware of the patient.
[2019-04-01] MEDS ORDERED: OXYTOCIN 20 UNIT/1000ML DRIP 40,000 MILLIUNITS/2,000 ML BAG IV ONE (09:45)
[2019-04-01] MEDS ORDERED: WATER FOR IRRIG STERILE 1,500 ML BOTTLE IR ONE (09:57)
[2019-04-01] MEDS ORDERED: SODIUM CHLORIDE 0.9% IRR 1,500 ML BOTTLE IR ONE (09:57)
--- NOTE | 2019-04-01 10:03 | Procedure Note ---
OB Delivery Note - Delivery Date of Delivery: 04/01/19 Surgeon: TOYA CLAIRE Estimated blood loss: other (800 cc) - Section Preop diagnosis: other (suspected multiple anomalies) Postop diagnosis: other (see Bryon charting for details of the baby's status.) section procedure: primary low transverse Disposition: PACU Complications: none Narrative: Pt is at 37.6 weeks and is for LTCS because of APA recommendation for delivery due to suspected multiple anomalies. Findings: Normal uterus, tubes and ovaries. Clear fluid. No nuchal cord. Anesth: Spinal. Procedure: Patient taken to the operating room and prepped and draped in the usual fashion. Pfannenstiel skin incision was made and carried down to the underlying fascia. Fascia was incised and the incision was extended bilaterally. Rectus fascia dissected off the rectus muscle both superiorly and inferiorly. Peritoneum identified tented up and entered. Peritoneal incision extended superiorly and inferiorly with good visualization of the bladder. Bladder blade was placed. Uterine incision was made and extended bilaterally. Baby delivered in the typical vertex fashion without difficulty. Baby bulb suctioned at the incision site and again after delivery. Cord was clamped and cut and handed off to the waiting team. Placenta was delivered spontaneously. Uterus was exteriorized and cleared of all clots and debris. Uterine incision closed with 0 Vicryl in a running locked fashion followed by second imbricating layer of 0 Vicryl. Some additional [id number] stitches were required but good hemostasis was achieved. Uterus tubes and ovaries returned to the abdominal cavity. Gutters cleared of all clots and debris. Pelvis was well irrigated. Good hemostasis noted. Interceed placed over the uterine incision and over the lower uterine segment in the midline. Urine was clear. Rectus fascia reapproximated with 0 Vicryl in a running fashion. Subcutaneous tissue was irrigated. Skin closed with 4-0 Vicryl in a subcuticular fashion followed by Dermabond. Patient tolerated the procedure well. All instrument and lap counts were correct. Patient taken to recovery in stable condition. - A at 1 minute: 7 at 5 minutes: 7 Infant Gender: Male
[2019-04-01] MEDS ORDERED: DEXMEDETOMIDINE 200 MCG/2 ML VIAL IV ONE (10:05)
[2019-04-01] MEDS ORDERED: ONDANSETRON 4 MG/2 ML INJ ONE (10:12)
[2019-04-01] MEDS ORDERED: PHENYLEPHRINE/NS 1,000 MCG/10 ML SYRINGE (OR USE) IV ONE (10:18)
[2019-04-01] MEDS ORDERED: KETOROLAC 30 MG/1 ML INJ ONE (11:02)
[2019-04-01] MEDS ORDERED: diphenhydrAMINE 50 MG/ML VIAL IV PRN (11:23)
[2019-04-01] MEDS ORDERED: NALOXONE 0.4 MG/1 ML INJ IV PRN ×3 (11:23→11:27)
[2019-04-01] MEDS ORDERED: MAGNESIUM HYDROXIDE (MOM) ORAL LIQD UDC PO PRN (11:27)
[2019-04-01] MEDS ORDERED: SENNOSIDES 8.6 MG TAB PO PRN (11:27)
[2019-04-01] MEDS ORDERED: SIMETHICONE 80 MG CHEW TAB PO PRN (11:27)
[2019-04-01] MEDS ORDERED: D5W/LACTATED RINGERS 1,000 ML IV SCH (12:00)
[2019-04-01] MEDS ORDERED: MORPHINE/NS 30 MG-30 ML PCA INJ IV SCH ×2 (12:00)
[2019-04-01] MEDS ORDERED: LANOLIN/ZINC/DIMETHICONE (LANSINOH) 7 GM TP PRN (12:00)
[2019-04-01] MEDS ORDERED: WITCH HAZEL/ GLYCERIN PAD TP PRN (12:00)
[2019-04-01] MEDS ORDERED: OXYTOCIN 20 UNIT/1000ML DRIP 20 UNITS/1,000 ML BAG IV SCH (12:00)
[2019-04-02] MEDS: oxyCODONE /ACETAMINOPHEN 5-325MG TAB PO PRN ×4 (02:41→23:16)
[2019-04-02] MEDS: IBUPROFEN 800 MG TAB PO PRN ×3 (04:34→22:12)
[2019-04-02 05:08] LABS: Hematocrit 25.3 % (30.3-42.9); Hemoglobin 8.7 gm/dl (10.1-14.3)
[2019-04-02] MEDS ORDERED: IRON DEXTRAN COMPLEX 100 MG/2 ML INJ IM ONE (08:49)
--- NOTE | 2019-04-02 11:54 | Progress Note ---
Assessment and Plan - Patient Problems (1) S/P primary low transverse Current Visit: Yes Status: Acute Plan to address problem: POD 1 - stable Continue routine postop orders Ling to be discontinued by RN Abdominal binder ordered. Ambulation encouraged Anticipate discharge in 24 to 48 hours (2) Single live Current Visit: Yes Status: Acute (3) Uncontrolled pain Current Visit: Yes Status: Acute Plan to address problem: Percocet increased from 1 to 2 tablets PO q6hrs prn for pain (4) Anemia due to blood loss, acute Current Visit: Yes Status: Acute Plan to address problem: Mildly tachycardic Infed 100mg IM x1 ordered Ferrous sulfate 325mg PO BID initiated Subjective - Subjective Date of service: 04/02/19 Principal diagnosis: POD #1; s/p Primary LTCS Interval history: see H&P and OB Delivery Procedure Note Patient reports: appetite normal, flatus, pain poorly controlled, ambulating normally, other (ling catheter still in place and draining well), no dizzy ambulation : transported (to [facility] due to multiple anomalies) Objective - Vital Signs Latest vital signs: Vital Signs Temp Pulse Resp BP BP Pulse Ox 04/02/19 08:49 97.7 F 95 H 18 135/93 98 04/02/19 08:14 20 04/02/19 05:24 98.2 F 112 H 20 128/95 97 04/02/19 01:07 97.1 F L 114 H 20 119/85 97 04/02/19 01:00 18 04/01/19 22:19 20 04/01/19 21:55 20 04/01/19 20:00 18 04/01/19 18:30 20 04/01/19 16:55 98.2 F 111 H 18 121/91 04/01/19 16:20 20 04/01/19 14:30 20 04/01/19 12:50 20 04/01/19 12:32 98.0 F 04/01/19 12:30 105 H 20 123/73 98 04/01/19 12:15 99 H 19 109/68 98 04/01/19 11:59 102 H 20 113/70 99 Intake and Output 04/01/19 04/02/19 04/02/19 23:59 07:59 15:59 Intake Total 360 360 120 Output Total 1300 1800 375 Balance -940 -1440 -255 Intake: Oral 360 360 120 Output: Urine 1300 1800 375 Indwelling Catheter 1300 1300 Void 500 375 Other: Total, Intake Amount 240 120 120 Total, Output Amount 600 300 375 # Voids Void 2 3 - Exam Cardiovascular: Present: Regular rate Lungs: Present: Clear to auscultation Abdomen: Present: normal appearance, soft Vulva: both: normal Uterus: Present: normal, firm, fundal height at umbilicus Extremities: Present: normal Incision: Present: normal, dry, intact Comments: scant lochia - Labs Labs: Abnormal lab results 04/02/19 Range/Units 03:18 Hgb 8.7 L (10.1-14.3) gm/dl Hct 25.3 L (30.3-42.9) %
[2019-04-02] MEDS: FERROUS SULFATE 325 MG TAB PO SCH ×2 (12:22→22:12)
--- NOTE | 2019-04-02 17:46 | Post Anesthesia Evaluation ---
- Post Anesthesia Evaluation Patient Participated: Yes Airway Patent: Yes Stable Respiratory Function: Yes Nausea/Vomiting: No Temp > 96.8F: Yes Pain Manageable: Yes Adequeate Hydration: Yes Anesthesia Complications: No Block Receding Appropriately: Yes Patient on Ventilator: No
[2019-04-03] MEDS: oxyCODONE /ACETAMINOPHEN 5-325MG TAB PO PRN ×3 (05:40→22:18)
[2019-04-03] MEDS: IBUPROFEN 800 MG TAB PO PRN ×2 (09:55→17:42)
[2019-04-03] MEDS: FERROUS SULFATE 325 MG TAB PO SCH ×2 (09:55→22:18)
--- NOTE | 2019-04-03 11:11 | Progress Note ---
Assessment and Plan A: /postop day 2 S/P primary LTCS. Anemia secondary to and blood loss. P: Continue iron supplementation. Continue current management. Encouraged ambulation. Anticipate discharge tomorrow if patient continues to do well. Subjective - Subjective Date of service: 04/03/19 Principal diagnosis: POD #2; s/p Primary LTCS Interval history: /postop day 2 S/P primary LTCS. Doing well. Patient reports a small amount of lochia. She is passing gas, tolerating a regular diet, voiding without difficulty, and ambulating well. Patient denies headache, chest pain, cough, shortness of breath, dizziness, leg pain, nausea or vomiting, or heavy bleeding. Patient reports: appetite normal, voiding normally, pain well controlled, flatus, ambulating normally, no dizzy ambulation, no nauseated [place]: doing well Objective - Vital Signs Latest vital signs: Vital Signs Temp Pulse Resp BP Pulse Ox 04/03/19 07:51 97.7 F 102 H 18 117/80 97 04/03/19 06:40 18 04/03/19 05:40 18 04/03/19 00:57 97.9 F 105 H 18 121/83 97 04/03/19 00:16 18 04/02/19 23:16 18 04/02/19 23:12 18 04/02/19 22:12 18 04/02/19 18:13 18 04/02/19 17:13 20 04/02/19 16:00 97.9 F 99 H 18 127/94 100 Intake and Output 04/02/19 04/03/19 04/03/19 23:59 07:59 15:59 Intake Total 480 480 Balance 480 480 Intake: Intake, Free Water 480 480 Other: # Voids Void 2 2 - Exam Cardiovascular: Present: Regular rate, Normal S1, Normal S2, No murmurs Lungs: Present: Clear to auscultation Abdomen: Present: normal appearance, soft, normal bowel sounds. Absent: distention, tenderness, guarding, rigidity Uterus: Present: normal, firm, fundal height below umbilicus. Absent: bogginess, tenderness Extremities: Present: normal. Absent: tenderness, edema Incision: Present: normal, dry, intact
[2019-04-04 09:37] VITALS: BP 123/84
[2019-04-04] MEDS: oxyCODONE /ACETAMINOPHEN 5-325MG TAB PO PRN (09:59)
[2019-04-04] MEDS: FERROUS SULFATE 325 MG TAB PO SCH (09:59)
--- NOTE | 2019-04-04 10:19 | Progress Note ---
Assessment and Plan A: /postop day 3 S/P primary low transverse section. Anemia secondary to and blood loss. P: Discharge patient home today. Discussed with patient /postop discharge instructions and warning signs in detail. Care of incision and activity restrictions discussed with patient. Advised patient to avoid lifting and housework, driving, tub baths (patient may take showers), and intercourse. Advised patient to continue taking vitamin and iron supplements at home. Advised patient to come to [facility] tomorrow for a BP check on this 04/08/2019 for an incision check. Patient voiced understanding of all instructions. Subjective - Subjective Date of service: 04/04/19 Principal diagnosis: POD #3; s/p Primary LTCS Interval history: /postop day 3 S/P primary LTCS. Patient desires discharge home today. Doing well. Patient reports a small amount of lochia. She is passing gas, tolerating a regular diet, voiding without difficulty, and ambulating well. Patient denies headache, chest pain, cough, shortness of breath, dizziness, leg pain, nausea or vomiting, or heavy bleeding. Patient requests Depo Provera prior to hospital discharge. Patient reports: appetite normal, voiding normally, pain well controlled, flatus, ambulating normally, no dizzy ambulation, no nauseated : other (Baby at another hospital but is doing well per patient.) Objective - Vital Signs Latest vital signs: Vital Signs Temp Pulse Resp BP BP Pulse Ox 04/04/19 08:20 98.2 F 91 H 20 123/84 04/04/19 00:00 98.7 F 78 16 125/84 04/03/19 23:18 18 04/03/19 22:18 18 04/03/19 18:42 18 04/03/19 15:20 97.7 F 105 H 18 127/82 98 Intake and Output 04/03/19 04/04/19 04/04/19 23:59 07:59 15:59 Intake Total 500 240 Balance 500 240 Intake: Oral 200 240 Intake, Free Water 300 Other: Total, Intake Amount 200 240 # Voids Void 1 1 - Exam Cardiovascular: Present: Regular rate, Normal S1, Normal S2, No murmurs Lungs: Present: Clear to auscultation Abdomen: Present: normal appearance, soft, normal bowel sounds. Absent: distention, tenderness, guarding, rigidity Uterus: Present: normal, firm, fundal height below umbilicus. Absent: bogginess, tenderness Extremities: Present: normal. Absent: tenderness, edema Incision: Present: normal, dry, intact
[2019-04-04] MEDS ORDERED: medroxyPROGESTERone ACETATE 150 MG/ML SYRINGE IM ONE (10:21)
--- NOTE | 2019-04-04 10:27 | Discharge Summary ---
Providers - Providers Date of Admission: 04/01/19 04:58 Date of discharge: 04/04/19 Attending physician: DELILAH POWER MD 04/04/19 09:52 Consult to Case Management [CONS] Routine Services Needed at Discharge: Mortgage Analyst Notified:: yes Phone number called:: [phone] Was contact made?: Yes If yes, spoke with:: weekend case resource manager Time called:: 09:55 Comment:: will come and see patient Primary care physician: DELILAH POWER MD Hospitalization Reason for admission: section Delivery: Procedure: primary low transverse Incision: normal, dry, intact Other procedures: none complications: none Discharge diagnosis: IUP at term delivered baby: male Pertinent studies: Labs Hospital course: Normal hospital course. Condition at discharge: Good Disposition: DC-01 TO HOME OR SELFCARE - Discharge Diagnoses (1) Term delivered Status: Acute (2) Anemia due to blood loss Status: Acute Plan - Discharge Medications Prescriptions: Ibuprofen [Motrin 800 MG tab] 800 mg PO Q8HR PRN #30 tablet PRN Reason: Pain , Severe (7-10) oxyCODONE /ACETAMINOPHEN [Percocet 5/325] 1 tab PO Q4HR #30 tab - Provider Discharge Summary Activity: routine, no sex for 6 weeks, no heavy lifting 4 weeks, no strenuous exercise Diet: routine Instructions: routine Additional instructions: Continue taking your vitamins and iron supplements at home. Follow up at [facility] tomorrow for BP check. Also follow up at [facility] on 04/08/2019 for incision check. Call your doctor immediately for: * Fever > 100.5 * Heavy vaginal bleeding ( >1 pad per hour) * Severe persistent headache * Shortness of breath * Reddened, hot, painful area to leg or breast * Drainage or odor from incision. * Keep incision clean and dry at all times and follow doctor's instructions regarding bathing/showering - Follow up plan Follow up: DELILAH POWER MD [Primary Care Provider] - 04/08/19
== END 2019-04-04 13:15 | disposition home or self-care (01) | DRG 765 ==
LOC: APU 04:58 → OB 13:41
PROVIDERS: ADMIT Obstetrics & Gynecology; ATTEND Obstetrics & Gynecology
PROC: 10D00Z1 Extraction of Products of Conception, Low, Open Approach (ICD-10-PCS; principal; 2019-04-01)
DX: O99.62 Diseases of the digestive system complicating childbirth (principal); D62 Acute posthemorrhagic anemia; O99.02 Anemia complicating childbirth; Z3A.37 37 weeks gestation of pregnancy; Z37.0 Single live birth; K21.9 Gastro-esophageal reflux disease without esophagitis
CPT/HCPCS: 36415; 85014; 85018; 85025; 86592; 86850; 86900; 86901; 88307; G0378; A6250; C1765; J0690; J1050; J1750; J1885; J2270; J2370; J2405; J2590; J2765; J3490; J7120; J7121

== ENCOUNTER 2019-06-14 08:03 | Emergency (ER) | payer MEDICAID ==
[2019-06-14 08:09] VITALS: BP 120/75
[2019-06-14] MEDS ORDERED: IBUPROFEN 800 MG TAB PO ONE (12:00)
--- NOTE | 2019-06-14 12:17 | Emergency Department Report ---
ED Upper Extremity Inj HPI - General Chief Complaint: Extremity Problem,Nontraumatic Stated Complaint: HAND PAIN/EXTREM PAIN Time Seen by Provider: 06/14/19 10:50 Source: patient Mode of arrival: Ambulatory Limitations: No Limitations - History of Present Illness Initial Comments: This is a 34-year-old female nontoxic, well nourished in appearance, no acute signs of distress presents to the ED with c/o of acute on chronic intermittent wrist pain with radiation to bilatearl fingers. Patient works as a hair dressing. Resolved with immobilization and increased pain with movement. Patient denies any other trauma. Patient denies any numbness, tingling, fever, chills, nausea, vomiting, chest pain, shortness of breath, headache, stiff neck. Patient denies any joint swelling or joint redness. Patient denies decreased range of motion. Patient denies any allergies or significant past medical history. MD Complaint: Injury to:: left, right, wrist, finger -: week(s) Other Extremity Injury: Fingers: Left, Right, Wrist: Left, Right Severity scale (0 -10): 3 Improves With: immobilization Worsens With: movement of extremity Associated Symptoms: numbness, other (Tingling). denies: weakness, neck pain, suspects foreign body, nausea/vomiting, heard/felt popping sensat - Related Data Previous Rx's Medication Instructions Recorded Last Taken Type Vit-Fe Fumar-FA [ 1 tab PO QDAY #30 tablet 09/04/18 Unknown Rx Vitamin] Dibucaine [Hemorrhoidal-Analgesic] 28 gm TP Q6H PRN #28 oint...g. 12/03/18 Unkn own Rx Docusate Sodium [Colace] 100 mg PO BID PRN #60 capsule 12/03/18 Unknown Rx Hydrocortisone [Anusol-Hc 2.5% TOP 30 gm RC Q8H PRN #30 cream..g. 12/03/18 Unknown Rx CREAM] Ibuprofen [Motrin 800 MG tab] 800 mg PO Q8HR PRN #30 tablet 04/01/19 Unknown Rx oxyCODONE /ACETAMINOPHEN [Percocet 1 tab PO Q4HR #30 tab 04/01/19 Unknown Rx 5/325] Naproxen 500 mg PO Q12H PRN #20 tablet 06/14/19 Unknown Rx Allergies Allergy/AdvReac Type Severity Reaction Status Date / Time No Known Allergies Allergy Verified 02/20/19 12:54 ED Review of Systems ROS: Stated complaint: HAND PAIN/EXTREM PAIN Other details as noted in HPI Constitutional: denies: chills, fever Eyes: denies: eye pain, eye discharge, vision change ENT: denies: ear pain, throat pain Respiratory: denies: cough, shortness of breath, wheezing Cardiovascular: denies: chest pain, palpitations Endocrine: no symptoms reported Gastrointestinal: denies: abdominal pain, nausea, diarrhea Genitourinary: denies: urgency, dysuria, discharge Musculoskeletal: denies: back pain, joint swelling, arthralgia Skin: denies: rash, lesions Neurological: denies: headache, weakness, paresthesias Psychiatric: denies: anxiety, depression Hematological/Lymphatic: denies: easy bleeding, easy bruising ED Past Medical Hx - Past Medical History Previous Medical History?: Yes Hx Hypertension: Yes Hx CVA: No Hx Heart Attack/AMI: No Hx Congestive Heart Failure: No Hx Diabetes: No Hx Deep Vein Thrombosis: No Hx Pulmonary Embolism: No Hx GERD: No Hx Liver Disease: No Hx Renal Disease: No Hx Sickle Cell Disease: Yes (sickle cell trait) Hx Arthritis: No Hx Seizures: No Hx Kidney Stones: No Hx Asthma: No Hx COPD: No Hx HIV: No Additional medical history: Recent visit with the diagnosis of bronchitis. HEMOGLOBIN C TRAIT - Surgical History Past Surgical History?: Yes Hx Pacemaker: No Hx Internal Defibrillator: No Additional Surgical History: hernia repair at age 12 - Social History Smoking Status: Never Smoker Substance Use Type: None - Medications Home Medications: Home Medications Medication Instructions Recorded Confirmed Last Taken Type Vit-Fe Fumar-FA [ 1 tab PO QDAY #30 tablet 09/04/18 04/02/19 Unknown Rx Vitamin] Dibucaine [Hemorrhoidal-Analgesic] 28 gm TP Q6H PRN #28 oint...g. 12/03/18 04/02/19 Unknown Rx Docusate Sodium [Colace] 100 mg PO BID PRN #60 capsule 12/03/18 04/02/19 Unknown Rx Hydrocortisone [Anusol-Hc 2.5% TOP 30 gm RC Q8H PRN #30 cream..g. 12/03/18 04/02/19 Unknown Rx CREAM] Ibuprofen [Motrin 800 MG tab] 800 mg PO Q8HR PRN #30 tablet 04/01/19 Unknown Rx oxyCODONE /ACETAMINOPHEN [Percocet 1 tab PO Q4HR #30 tab 04/01/19 Unknown Rx 5/325] Naproxen 500 mg PO Q12H PRN #20 tablet 06/14/19 Unknown Rx ED Physical Exam - General Limitations: No Limitations General appearance: alert, in no apparent distress - Head Head exam: Present: atraumatic, normocephalic - Neck Neck exam: Present: normal inspection, full ROM. Absent: tenderness, meningismus, lymphadenopathy - Extremities Exam Extremities exam: Present: normal inspection, full ROM, normal capillary refill. Absent: tenderness, joint swelling, calf tenderness - Expanded Upper Extremity Exam Left General: Present: normal inspection (Bilateral exam) Shoulder Exam: Present: normal inspection (Bilateral exam), full ROM (Bilateral exam). Absent: tenderness, swelling Upper Arm exam: Present: normal inspection (Bilateral exam), full ROM (Bilateral exam). Absent: tenderness, swelling Elbow exam: Present: normal inspection (Bilateral exam), full ROM (Bilateral exam). Absent: tenderness, swelling Forearm Wrist exam: Present: normal inspection (Bilateral exam), full ROM (Bilateral exam). Absent: tenderness, swelling Hand Wrist exam: Present: normal inspection (Bilateral exam), full ROM (Bilateral exam), other (Positive Phalen's test). Absent: tenderness, swelling, abrasion, laceration, ecchymosis, deformity, dislocation, erythema, amputation, nail avulsion, subungual hematoma Vascular: Present: vascular compromise, normal capillary refill - Back Exam Back exam: Present: normal inspection, full ROM - Neurological Exam Neurological exam: Present: alert, oriented X3, normal gait - Psychiatric Psychiatric exam: Present: normal affect, normal mood - Skin Skin exam: Present: warm, dry, intact, normal color. Absent: rash ED Course Vital Signs 06/14/19 08:08 Temperature 98.6 F Pulse Rate 96 H Respiratory 18 Rate Blood Pressure 120/75 O2 Sat by Pulse 99 Oximetry - Reevaluation(s) Reevaluation #1: 06/14/19 12:15 Patient is speaking in full sentences with no signs of distress noted. ED Medical Decision Making - Medical Decision Making This is a 34-year-old female that presents with bilatearl carpal tunnel. Patient is stable and was examined by me. I referred patient to an orthopedic doctor for further evaluation for possible MRI. Patient does have normal ROM with no tenderness and no joint swelling. No ecchymosis. no joint redness or swelling. Not warm to touch. No signs of cellulites present. Patient was instructed to [id number] supportive care. At time of discharge, the p atient does not seem toxic or ill in appearance. No acute signs of distress noted. Patient agrees to discharge treatment plan of care. No further questions noted by the patient. Critical care attestation.: If time is entered above; I have spent that time in minutes in the direct care of this critically ill patient, excluding procedure time. ED Disposition Clinical Impression: Bilateral carpal tunnel syndrome Disposition: MED SCREENING EXAM-LEFT Is pt being admited?: No Does the pt Need Aspirin: No Condition: Stable Instructions: Carpal Tunnel Syndrome (ED) Additional Instructions: Follow-up with a primary care and orthopedic doctor in 3-5 days or if symptoms worsen and continue return to emergency room as soon as possible. Prescriptions: Naproxen 500 mg PO Q12H PRN #20 tablet PRN Reason: Pain , Severe (7-10) Referrals: NANY LINNSAN MATEO MD KUSH [Primary Care Provider] - 3-5 Days PRIMARY CAREMD [Referring] - 3-5 Days PATRICIO GUZMAN MD [Staff Physician] - 3-5 Days KAREEM TRINIDAD MD [Staff Physician] - 3-5 Days Forms: Work/School Release Form(ED)
== END 2019-06-14 12:23 | disposition left against medical advice (07) ==
LOC: ED 08:03
DX: G56.03 Carpal tunnel syndrome, bilateral upper limbs (principal); I10 Essential (primary) hypertension; Z98.890 Other specified postprocedural states; Z79.899 Other long term (current) drug therapy
CPT/HCPCS: 99282

== ENCOUNTER 2020-07-09 01:37 | Emergency (ER) | payer MEDICAID ==
[2020-07-09 03:56] VITALS: BP 124/84
--- NOTE | 2020-07-09 04:10 | Emergency Department Report ---
ED General Adult HPI - General Chief complaint: Abdominal Pain Stated complaint: ABDOMINAL PAIN/VERY STRONG SMELL/DISCHARGE Time Seen by Provider: 07/09/20 04:00 Source: patient Mode of arrival: Ambulatory Limitations: No Limitations - History of Present Illness Initial comments: 35-year-old -[place] female patient presents with complaints of lower abdominal cramping, vaginal discharge, dysuria, and urinary frequency x2 weeks. She states the vaginal discharge appears to be the same as when she has had BV in the past. She denies any fever/chills/sweats, hematuria, dyspareunia, stool changes, or nausea/vomiting. She rates her current pain as a 4/10 in severity and states it is mild. -: Gradual - Related Data Previous Rx's Medication Instructions Recorded Last Taken Type Vit-Fe Fumar-FA [ 1 tab PO QDAY #30 tablet 09/04/18 Unknown Rx Vitamin] Dibucaine [Hemorrhoidal-Analgesic] 28 gm TP Q6H PRN #28 oint...g. 12/03/18 Unknown Rx Docusate Sodium [Colace] 100 mg PO BID PRN #60 capsule 12/03/18 Unknown Rx Hydrocortisone [Anusol-Hc 2.5% TOP 30 gm RC Q8H PRN #30 cream..g. 12/03/18 Unknown Rx CREAM] Ibuprofen [Motrin 800 MG tab] 800 mg PO Q8HR PRN #30 tablet 04/01/19 Unknown Rx oxyCODONE /ACETAMINOPHEN [Percocet 1 tab PO Q4HR #30 tab 04/01/19 Unknown Rx 5/325] Naproxen 500 mg PO Q12H PRN #20 tablet 06/14/19 Unknown Rx Sulfamethoxazole/Trimethoprim 1 each PO BID 5 Days #10 tablet 07/09/20 Unknown Rx [Bactrim DS TAB] metroNIDAZOLE [Flagyl] 500 mg PO Q12HR 7 Days #14 tab 07/09/20 Unknown Rx Allergies Allergy/AdvReac Type Severity Reaction Status Date / Time No Known Allergies Allergy Verified 02/20/19 12:54 ED Review of Systems ROS: Stated complaint: ABDOMINAL PAIN/VERY STRONG SMELL/DISCHARGE Other details as noted in HPI Constitutional: denies: chills, diaphoresis, fever, weakness Gastrointestinal: as per HPI. denies: nausea, vomiting Genitourinary: as per HPI Musculoskeletal: denies: back pain Skin: denies: lesions, change in color Hematological/Lymphatic: denies: swollen glands ED Past Medical Hx - Past Medical History Previous Medical History?: Yes Hx Hypertension: Yes (Post ) Hx CVA: No Hx Heart Attack/AMI: No Hx Congestive Heart Failure: No Hx Diabetes: No Hx Deep Vein Thrombosis: No Hx Pulmonary Embolism: No Hx GERD: No Hx Liver Disease: No Hx Renal Disease: No Hx Sickle Cell Disease: Yes (sickle cell trait) Hx Arthritis: No Hx Seizures: No Hx Kidney Stones: No Hx Asthma: No Hx COPD: No Hx HIV: No Additional medical history: Recent visit with the diagnosis of bronchitis. HEMOGLOBIN C TRAIT - Surgical History Past Surgical History?: Yes Hx Pacemaker: No Hx Internal Defibrillator: No Additional Surgical History: hernia repair at age 12 - Social History Smoking Status: Never Smoker Substance Use Type: None - Medications Home Medications: Home Medications Medication Instructions Recorded Confirmed Last Taken Type Vit-Fe Fumar-FA [ 1 tab PO QDAY #30 tablet 09/04/18 04/02/19 Unknown Rx Vitamin] Dibucaine [Hemorrhoidal-Analgesic] 28 gm TP Q6H PRN #28 oint...g. 12/03/18 04/02/19 Unknown Rx Docusate Sodium [Colace] 100 mg PO BID PRN #60 capsule 12/03/18 04/02/19 Unknown Rx Hydrocortisone [Anusol-Hc 2.5% TOP 30 gm RC Q8H PRN #30 cream..g. 12/03/18 04/02/19 Unknown Rx CREAM] Ibuprofen [Motrin 800 MG tab] 800 mg PO Q8HR PRN #30 tablet 04/01/19 Unknown Rx oxyCODONE /ACETAMINOPHEN [Percocet 1 tab PO Q4HR #30 tab 04/01/19 Unknown Rx 5/325] Naproxen 500 mg PO Q12H PRN #20 tablet 06/14/19 Unknown Rx Sulfamethoxazole/Trimethoprim 1 each PO BID 5 Days #10 tablet 07/09/20 Unknown Rx [Bactrim DS TAB] metroNIDAZOLE [Flagyl] 500 mg PO Q12HR 7 Days #14 tab 07/09/20 Unknown Rx ED Physical Exam - General Limitations: No Limitations General appearance: alert, in no apparent distress - Head Head exam: Present: atraumatic, normocephalic - Eye Eye exam: Present: normal appearance - Neck Neck exam: Present: normal inspection - Respiratory Respiratory exam: Absent: respiratory distress - Cardiovascular Cardiovascular Exam: Present: regular rate - GI/Abdominal GI/Abdominal exam: Present: soft, normal bowel sounds. Absent: distended, tenderness, guarding, rebound, rigid - Speculum exam: Present: vaginal discharge Bi-manual exam: Present: normal bi-manual exam. Absent: cervical motion tendernes - Back Exam Back exam: Present: full ROM. Absent: CVA tenderness (R), CVA tenderness (L) - Neurological Exam Neurological exam: Present: alert, oriented X3 - Psychiatric Psychiatric exam: Present: normal affect, normal mood - Skin Skin exam: Present: warm, dry, intact, normal color. Absent: rash ED Course Vital Signs 07/09/20 03:55 Temperature 98.2 F Pulse Rate 88 Respiratory 16 Rate Blood Pressure 124/84 O2 Sat by Pulse 100 Oximetry ED Medical Decision Making - Lab Data Lab Results 07/09/20 Range/Units 04:20 Urine Color Yellow (Yellow) Urine Turbidity Cloudy (Clear) Urine pH 5.0 (5.0-7.0) Ur Specific [place] 1.026 (1.003-1.030) Urine Protein 30 mg/dl (Negative) mg/dL Urine Glucose (UA) Neg (Negative) mg/dL Urine Ketones Tr (Negative) mg/dL Urine Blood Neg (Negative) Urine Nitrite Pos (Negative) Urine Bilirubin Neg (Negative) Urine Urobilinogen 2.0 (<2.0) mg/dL Ur Leukocyte Esterase Mod (Negative) Urine WBC (Auto) 38.0 H (0.0-6.0) /HPF Urine RBC (Auto) 5.0 (0.0-6.0) /HPF U Epithel Cells (Auto) 9.0 (0-13.0) /HPF Urine Bacteria (Auto) 3+ (Negative) /HPF Urine Mucus 3+ /HPF Urine HCG, Qual Negative (Negative) - Medical Decision Making 35-year-old -[place] female patient presents with complaints of lower abdominal cramping, vaginal discharge, dysuria, and urinary frequency x2 weeks. She states the vaginal discharge appears to be the same as when she has had BV in the past. She denies any fever/chills/sweats, hematuria, dyspareunia, stool changes, or nausea/vomiting. She rates her current pain as a 4/10 in severity and states it is mild. No CMT noted on pelvic exam. Minimal discharge noted. Wet prep shows + BV. Patient informed to follow-up with her gonorrhea chlamydia results in 5 days. UA shows elevated WBCs will treat for UTI with bactrim. Flagyl given for BV. Patient to follow-up with primary care in 3 to 5 days. Her vitals are normal, she is well-appearing, and she is stable for discharge home. Strict return precautions discussed in detail patient verbalizes understanding. Critical care attestation.: If time is entered above; I have spent that time in minutes in the direct care of this critically ill patient, excluding procedure time. ED Disposition Clinical Impression: Bacterial vaginosis, UTI (urinary tract infection) Disposition: - TO HOME OR SELFCARE Is pt being admited?: No Condition: Stable Instructions: Abdominal Pain (ED), Bacterial Vaginosis (ED), Bacterial Vaginosis, Urinary Tract Infection, Adult, [id number] Prescriptions: Sulfamethoxazole/Trimethoprim [Bactrim DS TAB] 1 each PO BID 5 Days #10 tablet metroNIDAZOLE [Flagyl] 500 mg PO Q12HR 7 Days #14 tab Referrals: PRIMARY CARE, [Primary Care Provider] - 3-5 Days Forms: STI Treatment and Prevention
[2020-07-09 04:36] LABS: Bacteria,Urine 3+ /HPF (Negative); Bilirubin,Urine NEG (Negative); Blood,Urine NEG (Negative); Color,Urine Yellow (Yellow); Mucus,Urine 3+ /HPF
[2020-07-09 04:41] LABS: HCG Qualitative,Urine Negative (Negative)
== END 2020-07-09 06:30 | disposition home or self-care (01) ==
LOC: ED 01:37
DX: N39.0 Urinary tract infection, site not specified (principal); N76.0 Acute vaginitis; B96.89 Other specified bacterial agents as the cause of diseases classified elsewhere; I10 Essential (primary) hypertension; Z98.890 Other specified postprocedural states; Z79.1 Long term (current) use of non-steroidal anti-inflammatories (NSAID); Z79.899 Other long term (current) drug therapy
CPT/HCPCS: 81001; 81025; 87076; 87086; 87186; 87210; 87591; 99284

== ENCOUNTER 2020-08-20 21:34 | Emergency (ER) | payer MEDICAID | END 2020-08-21 01:00 | disposition left against medical advice (07) | LOC: ED 21:34 | DX: J02.9 Acute pharyngitis, unspecified (principal); Z53.21 Procedure and treatment not carried out due to patient leaving prior to being seen by health care provider ==

== ENCOUNTER 2021-02-05 07:05 | Emergency (ER) | payer MEDICAID ==
[2021-02-05 07:27] VITALS: BP 130/81
--- NOTE | 2021-02-05 07:42 | Emergency Department Report ---
ED ENT HPI - General Chief complaint: Dental/Oral Stated complaint: ORAL THRUSH/ TOOTHACHE Time Seen by Provider: 02/05/21 07:28 Source: patient Mode of arrival: Ambulatory Limitations: No Limitations - History of Present Illness Initial comments: 35-year-old female presents to the ER today with complaints of white spots on the top of her tongue. She states that she noticed it 2 days ago. She states that she is concerned she may have oral thrush. She admits that she recently completed a course of Flagyl and doxycycline for BV/STI. She denies any pain or swelling to the tongue. She said that she did notice some black discoloration to the left lower jaw most posterior aspect. She again denies any pain to the area. She denies any injury. She denies any trismus. She denies any difficulty swallowing. She denies any significant past medical history. MD complaint: other (white exudate on tongue) -: days(s) (2) - Related Data Previous Rx's Medication Instructions Recorded Last Taken Type Vit-Fe Fumar-FA [ 1 tab PO QDAY #30 tablet 09/04/18 Unknown Rx Vitamin] Dibucaine [Hemorrhoidal-Analgesic] 28 gm TP Q6H PRN #28 oint...g. 12/03/18 Unknown Rx Docusate Sodium [Colace] 100 mg PO BID PRN #60 capsule 12/03/18 Unknown Rx Hydrocortisone [Anusol-Hc 2.5% TOP 30 gm RC Q8H PRN #30 cream..g. 12/03/18 Unknown Rx CREAM] Ibuprofen [Motrin 800 MG tab] 800 mg PO Q8HR PRN #30 tablet 04/01/19 Unknown Rx oxyCODONE /ACETAMINOPHEN [Percocet 1 tab PO Q4HR #30 tab 04/01/19 Unknown Rx 5/325] Naproxen 500 mg PO Q12H PRN #20 tablet 06/14/19 Unknown Rx Fluconazole [Diflucan TAB] 200 mg PO ONCE 1 Days #1 tablet 07/09/20 Unknown Rx Sulfamethoxazole/Trimethoprim 1 each PO BID 5 Days #10 tablet 07/09/20 Unknown Rx [Bactrim DS TAB] metroNIDAZOLE [Flagyl] 500 mg PO Q12HR 7 Days #14 tab 07/09/20 Unknown Rx Nystatin [Nystatin SUSP] 5 ml PO QID #120 ml 02/05/21 Unknown Rx Allergies Allergy/AdvReac Type Severity Reaction Status Date / Time No Known Allergies Allergy Verified 02/20/19 12:54 ED Dental HPI - General Chief complaint: Dental/Oral Stated complaint: ORAL THRUSH/ TOOTHACHE Time Seen by Provider: 02/05/21 07:28 Source: patient Mode of arrival: Ambulatory Limitations: No Limitations - Related Data Previous Rx's Medication Instructions Recorded Last Taken Type Vit-Fe Fumar-FA [ 1 tab PO QDAY #30 tablet 09/04/18 Unknown Rx Vitamin] Dibucaine [Hemorrhoidal-Analgesic] 28 gm TP Q6H PRN #28 oint...g. 12/03/18 Unknown Rx Docusate Sodium [Colace] 100 mg PO BID PRN #60 capsule 12/03/18 Unknown Rx Hydrocortisone [Anusol-Hc 2.5% TOP 30 gm RC Q8H PRN #30 cream..g. 12/03/18 Unknown Rx CREAM] Ibuprofen [Motrin 800 MG tab] 800 mg PO Q8HR PRN #30 tablet 04/01/19 Unknown Rx oxyCODONE /ACETAMINOPHEN [Percocet 1 tab PO Q4HR #30 tab 04/01/19 Unknown Rx 5/325] Naproxen 500 mg PO Q12H PRN #20 tablet 06/14/19 Unknown Rx Fluconazole [Diflucan TAB] 200 mg PO ONCE 1 Days #1 tablet 07/09/20 Unknown Rx Sulfamethoxazole/Trimethoprim 1 each PO BID 5 Days #10 tablet 07/09/20 Unknown Rx [Bactrim DS TAB] metroNIDAZOLE [Flagyl] 500 mg PO Q12HR 7 Days #14 tab 07/09/20 Unknown Rx Nystatin [Nystatin SUSP] 5 ml PO QID #120 ml 02/05/21 Unknown Rx Allergies Allergy/AdvReac Type Severity Reaction Status Date / Time No Known Allergies Allergy Verified 02/20/19 12:54 ED Review of Systems ROS: Stated complaint: ORAL THRUSH/ TOOTHACHE Other details as noted in HPI Comment: All other systems reviewed and negative Constitutional: denies: chills, fever Eyes: denies: eye pain, eye discharge, vision change ENT: other (white spots on tongue ). denies: ear pain, throat pain, dental pain, hearing loss, congestion Respiratory: denies: cough, shortness of breath, SOB with exertion, SOB at rest, wheezing Cardiovascular: denies: chest pain, palpitations Endocrine: no symptoms reported Gastrointestinal: denies: abdominal pain, nausea, diarrhea, constipation, hematemesis, melena, hematochezia Genitourinary: denies: urgency, dysuria, discharge, abnormal menses, dyspareunia Musculoskeletal: denies: back pain, joint swelling, arthralgia Skin: rash. denies: change in color, change in hair/nails, pruritus Neurological: denies: headache, weakness, numbness, paresthesias, confusion, abnormal gait Psychiatric: denies: anxiety, depression, auditory hallucinations, visual hallucinations, homicidal thoughts, suicidal thoughts Hematological/Lymphatic: denies: as per HPI, easy bleeding, easy bruising, swollen glands ED Past Medical Hx - Past Medical History Hx Hypertension: Yes (Post ) Hx CVA: No Hx Heart Attack/AMI: No Hx Congestive Heart Failure: No Hx Diabetes: No Hx Deep Vein Thrombosis: No Hx Pulmonary Embolism: No Hx GERD: No Hx Liver Disease: No Hx Renal Disease: No Hx Sickle Cell Disease: No (sickle cell trait) Hx Arthritis: No Hx Seizures: No Hx Kidney Stones: No Hx Asthma: No Hx COPD: No Hx HIV: No Additional medical history: Recent visit with the diagnosis of bronchitis. HEMOGLOBIN C TRAIT - Surgical History Hx Pacemaker: No Hx Internal Defibrillator: No Additional Surgical History: hernia repair at age 12 - Social History Smoking Status: Never Smoker Substance Use Type: None - Medications Home Medications: Home Medications Medication Instructions Recorded Confirmed Last Taken Type Vit-Fe Fumar-FA [ 1 tab PO QDAY #30 tablet 09/04/18 04/02/19 Unknown Rx Vitamin] Dibucaine [Hemorrhoidal-Analgesic] 28 gm TP Q6H PRN #28 oint...g. 12/03/18 04/02/19 Unknown Rx Docusate Sodium [Colace] 100 mg PO BID PRN #60 capsule 12/03/18 04/02/19 Unknown Rx Hydrocortisone [Anusol-Hc 2.5% TOP 30 gm RC Q8H PRN #30 cream..g. 12/03/18 04/02/19 Unknown Rx CREAM] Ibuprofen [Motrin 800 MG tab] 800 mg PO Q8HR PRN #30 tablet 01/30/20 Unknown Rx oxyCODONE /ACETAMINOPHEN [Percocet 1 tab PO Q4HR #30 tab 04/01/19 Unknown Rx 5/325] Naproxen 500 mg PO Q12H PRN #20 tablet 06/14/19 Unknown Rx Fluconazole [Diflucan TAB] 200 mg PO ONCE 1 Days #1 tablet 07/09/20 Unknown Rx Sulfamethoxazole/Trimethoprim 1 each PO BID 5 Days #10 tablet 07/09/20 Unknown Rx [Bactrim DS TAB] metroNIDAZOLE [Flagyl] 500 mg PO Q12HR 7 Days #14 tab 07/09/20 Unknown Rx Nystatin [Nystatin SUSP] 5 ml PO QID #120 ml 02/05/21 Unknown Rx ED Physical Exam - General Limitations: No Limitations General appearance: alert, in no apparent distress - Head Head exam: Present: atraumatic, normocephalic, normal inspection - Eye Eye exam: Present: normal appearance, PERRL, EOMI Pupils: Present: normal accommodation - ENT ENT exam: Present: normal exam, mucous membranes moist, other (mild white exudate noted on dorsal tongue ) - Expanded ENT Exam Expanded Mouth exam: Present: normal external inspection Teeth exam: Present: normal inspection Throat exam: Positive: normal inspection - Neck Neck exam: Present: normal inspection, full ROM - Respiratory Respiratory exam: Present: normal lung sounds bilaterally. Absent: respiratory distress, wheezes, rales, rhonchi - Cardiovascular Cardiovascular Exam: Present: regular rate, normal rhythm, normal heart sounds - Neurological Exam Neurological exam: Present: alert, oriented X3, CN II-XII intact, normal gait - Psychiatric Psychiatric exam: Present: normal affect, normal mood - Skin Skin exam: Present: intact ED Course Vital Signs 02/05/21 07:26 Temperature 98.2 F Respiratory 16 Rate Blood Pressure 130/81 ED Medical Decision Making - Medical Decision Making Patient just finished a course of 2 antibiotics recently which could be the reason for the thrush. She will be started on nystatin oral. I did discuss with her that she could continues to get recurrent flareup of thrush not associated with antibiotic use or steroid she needs to follow-up with her PCP to get testing such as HIV hepatitis. Dental exam appears normal without any signs of dental infection or abscess. Patient otherwise well-appearing, nontoxic and not in any acute distress. She is tolerating her secretions well. She has no stridor or drooling on exam. Her vital signs are stable. She is neurologically intact. Patient expressed understanding of all instructions and agree with plan. Patient stable at time of discharge. Critical care attestation.: If time is entered above; I have spent that time in minutes in the direct care of this critically ill patient, excluding procedure time. ED Disposition Clinical Impression: Oral thrush Disposition: 01 HOME / SELF CARE / HOMELESS Is pt being admited?: No Does the pt Need Aspirin: No Condition: Stable Instructions: Oral Thrush, Adult, [id number] Additional Instructions: I recommend that you use the oral nystatin as prescribed. Follow-up closely with your PCP. Return to the ER if your symptoms changes or worsens in any way. Prescriptions: Nystatin [Nystatin SUSP] 5 ml PO QID #120 ml Referrals: [facility] [Provider Group] - 3-5 Days Time of Disposition: 07:44
== END 2021-02-05 11:00 | disposition home or self-care (01) ==
LOC: ED 07:05
DX: B37.0 Candidal stomatitis (principal)
CPT/HCPCS: 99282